=== PATIENT | male | born 1955 ===

== ENCOUNTER 2024-03-27 12:15 | Inpatient (IN) | payer OTHER ==
[~2024-03-27] VITALS: Ht 121.9 cm; Wt 79.4 kg
[2024-03-27 14:22] VITALS: BP 122/78
[2024-03-27] MEDS ORDERED: GLIPIZIDE XL10 MG PO ×2 (14:23→14:24)
[2024-03-27] MEDS ORDERED: METFORMIN HCL1000 M2 PO (14:23)
[2024-03-27] MEDS ORDERED: TOPROL XL25 M1 PO (14:24)
[2024-03-27] MEDS ORDERED: SYNTHROID75 MCG PO (14:24)
[2024-03-27] MEDS ORDERED: PLAVIX75 MG PO (14:25)
[2024-03-27] MEDS ORDERED: VASOTEC20 M1 PO (14:25)
[2024-03-27] MEDS ORDERED: NORVASC2.5 M1 PO (14:26)
[2024-03-27] MEDS ORDERED: CRESTOR40 MG ×2 (14:26)
[2024-03-27] MEDS ORDERED: OCUVITE LUTEIN1 EAC1 (14:27)
[2024-03-27] MEDS ORDERED: LOVASA (14:28)
[2024-04-04] MEDS ORDERED: GABAPENTIN 300 MG CAPSULE PO SCH (17:00)
[2024-04-04] MEDS ORDERED: ONDANSETRON HCL 2 MG/ML VIAL IV PRN (17:00)
[2024-04-04] MEDS ORDERED: RINGERS SOLUTION,LACTATED 1,000 ML IV SCH (17:00)
[2024-04-04] MEDS ORDERED: MORPHINE SULFATE 4 MG/ML CARTRIDGE IV PRN (17:00)
[2024-04-04] MEDS ORDERED: DEXTROSE 50 % IN WATER 0.5 G/ML DISP.SYRIN IV PRN (17:00)
[2024-04-04] MEDS ORDERED: OxyCODONE HCL 5 MG TABLET (ROXICODONE) PO PRN (17:00)
[2024-04-04] MEDS ORDERED: BUPIVACAINE HCL 30 ML VIAL IJ ONE (17:15)
[2024-04-04] MEDS ORDERED: POVIDONE-IODINE 118 ML BOTT TOP ONE (17:15)
[2024-04-04] MEDS ORDERED: LIDOCAINE HCL 1%/EPINEPHRINE 20ML VIAL IJ ONE (17:15)
[2024-04-04] MEDS ORDERED: CEFTRIAXONE SODIUM 2,000 MG VIAL IV ONE (17:15)
[2024-04-04] MEDS ORDERED: DIBUCAINE 30 GM TUBE RECTAL ONE (17:15)
[2024-04-04] MEDS ORDERED: HEMOSTATIC MATRIX 1 KIT KIT TOP ONE (17:15)
[2024-04-04] MEDS ORDERED: METRONIDAZOLE/SODIUM CHLORIDE 500 MG/100 ML PIGGYBACK IV ONE (17:15)
[2024-04-04] MEDS ORDERED: SUGAMMADEX SODIUM 200 MG/2 ML VIAL IV ONE (17:45)
[2024-04-04] MEDS ORDERED: ACETAMINOPHEN 500 MG GEL..CAP PO SCH (20:00)
[2024-04-04] MEDS ORDERED: CELECOXIB 200 MG CAPSULE PO SCH (21:00)
[2024-04-04] MEDS ORDERED: FAMOTIDINE/PF 20 MG/2 ML VIAL IV PUSH SCH (21:00)
[2024-04-05 01:27] VITALS: BP 133/68; O2SAT 96
[2024-04-05 07:00] LABS: HEMATOCRIT 36.5 % (39.0-48.0); HEMOGLOBIN 13.1 g/dL (13-16.00); MEAN CELL VOLUME 93.4 fL (80.0-100.00); MEAN CORPUSCULAR HEMOGLOBIN 33.5 pg (27.00-32.0); MEAN CORPUSCULAR HGB CONC 35.9 g/dl (32.0-36.0); PLATELET COUNT 197 K/uL (150-450); RED BLOOD COUNT 3.91 M/uL (4.00-6.00); RED CELL DISTRIBUTION WIDTH 13.1 % (11.5-14.5)
[2024-04-05 08:00] VITALS: BP 129/64; O2SAT 98
[2024-04-05 08:29] LABS: ALBUMIN 3.6 gm/dL (3.4-5.0); CALCIUM 9.1 mg/dL (8.5-10.1); CREATININE SERUM 1.09 mg/dL (0.70-1.30); GFR 67.07; MAGNESIUM 1.5 mg/dL (1.8-2.4); PHOSPHOROUS 2.1 mg/dL (2.5-4.9); POTASSIUM 4.72 mEq/L (3.5-5.1)
[2024-04-05] MEDS ORDERED: INSULIN LISPRO 1,000 UNIT/10 ML UNITS SUBCUTANEO PRN (08:45)
[2024-04-05] MEDS ORDERED: DEXTROSE 50 % IN WATER 0.5 G/ML DISP.SYRIN IV PRN (08:45)
[2024-04-05] MEDS ORDERED: LACTULOSE 20 G/30 ML BLIST.PACK PO SCH (09:00)
[2024-04-05] MEDS ORDERED: MAGNESIUM CHLORIDE 70 MG TABLET.DR PO STA (10:59)
[2024-04-05] MEDS ORDERED: NAPH,MB-DB/K PH,MBDB 1 PKT PACKET PO STA (11:00)
[2024-04-05] MEDS ORDERED: METOPROLOL SUCCINATE 25 MG TAB.SR.24H PO NR (11:15)
[2024-04-05] MEDS ORDERED: ENALAPRIL MALEATE 20 MG TABLET PO NR (11:15)
[2024-04-05] MEDS ORDERED: NEURONTIN300 MG PO (11:31)
[2024-04-05] MEDS ORDERED: A/F PAIN RELIE500 MG PO (11:31)
[2024-04-05] MEDS ORDERED: ENOXAPARIN SODIUM 40 MG/0.4 ML SYRINGE SUBCUTANEO SCH (17:00)
[2024-04-06] MEDS ORDERED: ENALAPRIL MALEATE 20 MG TABLET PO SCH (09:00)
[2024-04-06] MEDS ORDERED: METOPROLOL SUCCINATE 25 MG TAB.SR.24H PO SCH (09:00)
[2024-04-06] MEDS ORDERED: ENOXAPARIN SODIUM 40 MG/0.4 ML SYRINGE SUBCUTANEO SCH (09:00)
== END 2024-04-05 15:14 | disposition home or self-care (01) | DRG 349 ==
LOC: O/R 04-04 08:48 → SURH 04-04 12:00
PROVIDERS: ADMIT Surgery; ATTEND Surgery
PROC: 0DBP7ZZ Excision of Rectum, Via Natural or Artificial Opening (ICD-10-PCS; principal; 2024-04-04 12:00)
DX: D12.8 Benign neoplasm of rectum (principal); Z20.822 Contact with and (suspected) exposure to COVID-19